=== PATIENT | male | born 1955 | race American Indian/Alaskan Native ===

== ENCOUNTER 2019-03-06 18:19 | Emergency (ER) | payer SELFPAY ==
--- NOTE | 2019-03-06 18:46 | Event Note ---
ED Screening Note Date of service: 03/06/18 Time: 18:42 ED Screening Note: Pt complains of BRB hemoptysis x this morning states cough since last night denies hx of cancer recently stopped smoking cigarettes hasn't been on his blood thinner since 12/2018 hx of [place]-denies CP or SOB or travel outside the country This initial assessment/diagnostic orders/clinical plan/treatment(s) is/are subject to change based on patients health status, clinical progression and re- assessment by fellow clinical providers in the ED. Further treatment and workup at subsequent clinical providers discretion. Patient/guardian urged not to elope from the ED as their condition may be serious if not clinically assessed and managed. Initial orders include:
[2019-03-06 19:26] LABS: INR 0.99 (0.87-1.13)
[2019-03-06 19:28] LABS: Basophils # (Auto) 0.1 K/mm3 (0.0-0.1); Basophils % (Auto) 1.3 % (0.0-1.8); Eosinophils # (Auto) 0.1 K/mm3 (0.0-0.4); Eosinophils % (Auto) 2.5 % (0.0-4.3); Hematocrit 39.4 % (35.5-45.6); Hemoglobin 12.8 gm/dl (11.8-15.2); Lymphocytes # (Auto) 2.3 K/mm3 (1.2-5.4); Lymphocytes % (Auto) 39.6 % (13.4-35.0); Mean Corpuscular HGB Conc 32 % (32-34); Mean Corpuscular Volume 83 fl (84-94); Monocytes # (Auto) 0.4 K/mm3 (0.0-0.8); Monocytes % (Auto) 6.7 % (0.0-7.3); Platelet Count 268 K/mm3 (140-440); Red Blood Count 4.76 M/mm3 (3.65-5.03); Red Cell Distribution Width 15.6 % (13.2-15.2)
[2019-03-06 19:31] LABS: BUN/Creatinine Ratio 11; Blood Urea Nitrogen 9 mg/dL (9-20); Hemolysis Index 17
[2019-03-06 19:45] LABS: Partial Thromboplastin Time 41.4 Sec. (24.2-36.6)
--- NOTE | 2019-03-06 20:02 | XRay Report ---
CHEST 2 VIEWS INDICATION / CLINICAL INFORMATION: hemoptysis. COMPARISON: None available. FINDINGS: SUPPORT DEVICES: None. HEART / MEDIASTINUM: There is prominence the cardiac silhouette LUNGS / PLEURA: There is an 8 mm oval density projecting over the right lower chest. This is seen onl y on the frontal view. .No pneumothorax. ADDITIONAL FINDINGS: No significant additional findings. IMPRESSION: 1. There is a small nodular density projecting over the right lower chest seen only on the frontal vi ew. This may represent a nipple shadow. Repeat frontal chest radiograph with nipple markers is recomm ended. Signer Name: Maximilian Scherer MD Signed: 03/06/2019 7:58 PM Workstation Name: [id number]
--- NOTE | 2019-03-06 21:53 | Emergency Department Report ---
ED General Adult HPI - General Chief complaint: Upper Respiratory Infection Stated complaint: VOMITING BLOOD Time Seen by Provider: 03/06/19 18:42 Source: patient Mode of arrival: Ambulatory Limitations: No Limitations - History of Present Illness Initial comments: Patient presents to the emergency department with a chief complaint of a cough that is productive of blood that started last night. Patient denies any chest pain or any recent travel or trauma. Patient has no other complaints -: Sudden Severity scale (0 -10): 0 Improves with: none Worsens with: none Associated Symptoms: denies other symptoms Treatments Prior to Arrival: none - Related Data Previous Rx's Medication Instructions Recorded Last Taken Type ALBUTEROL Inhaler (OR & NICU) 2 puff IH Q4HR PRN #1 inhalation 03/06/19 Unknown Rx [ProAir HFA Inhaler] predniSONE [Deltasone] 20 mg PO DAILY #15 tablet 03/06/19 Unknown Rx Allergies Allergy/AdvReac Type Severity Reaction Status Date / Time No Known Allergies Allergy Unverified 03/06/19 18:22 ED Review of Systems ROS: Stated complaint: VOMITING BLOOD Other details as noted in HPI Comment: All other systems reviewed and negative Constitutional: denies: chills, fever Eyes: denies: eye pain, eye discharge, vision change ENT: denies: ear pain, throat pain Respiratory: denies: cough, shortness of breath, wheezing Cardiovascular: denies: chest pain, palpitations Endocrine: no symptoms reported Gastrointestinal: denies: abdominal pain, nausea, diarrhea Genitourinary: denies: urgency, dysuria Musculoskeletal: denies: back pain, joint swelling, arthralgia Skin: denies: rash, lesions Neurological: denies: headache, weakness, paresthesias Psychiatric: denies: anxiety, depression Hematological/Lymphatic: denies: easy bleeding, easy bruising ED Past Medical Hx - Past Medical History Previous Medical History?: Yes Hx Hypertension: Yes Hx Heart Attack/AMI: Yes (stent) - Social History Smoking Status: Former Smoker Substance Use Type: None - Medications Home Medications: Home Medications Medication Instructions Recorded Confirmed Last Taken Type ALBUTEROL Inhaler (OR & NICU) 2 puff IH Q4HR PRN #1 inhalation 03/06/19 Unknown Rx [ProAir HFA Inhaler] predniSONE [Deltasone] 20 mg PO DAILY #15 tablet 03/06/19 Unknown Rx ED Physical Exam - General Limitations: No Limitations General appearance: alert, in no apparent distress - Head Head exam: Present: atraumatic, normocephalic - Eye Eye exam: Present: normal appearance, PERRL, EOMI - ENT ENT exam: Present: mucous membranes moist - Neck Neck exam: Present: normal inspection - Respiratory Respiratory exam: Present: normal lung sounds bilaterally. Absent: respiratory distress - Cardiovascular Cardiovascular Exam: Present: regular rate, normal rhythm. Absent: systolic murmur, diastolic murmur, rubs, gallop - GI/Abdominal GI/Abdominal exam: Present: soft, normal bowel sounds. Absent: distended, tenderness - Rectal Rectal exam: Present: deferred - Extremities Exam Extremities exam: Present: normal inspection - Back Exam Back exam: Present: normal inspection - Neurological Exam Neurological exam: Present: alert, oriented X3, CN II-XII intact. Absent: motor sensory deficit - Psychiatric Psychiatric exam: Present: normal affect, normal mood - Skin Skin exam: Present: warm, dry, intact, normal color. Absent: rash ED Course Vital Signs 03/06/19 03/06/19 18:24 20:11 Temperature 98.5 F 97.6 F Pulse Rate 85 81 Respiratory 16 20 Rate Blood Pressure 165/93 Blood Pressure 156/94 [Left] O2 Sat by Pulse 96 98 Oximetry ED Medical Decision Making - Lab Data Result diagrams: 03/06/19 18:57 03/06/19 18:57 Lab Results 03/06/19 03/06/19 03/06/19 Range/Units 18:57 18:57 18:57 WBC 5.9 (4.5-11.0) K/mm3 RBC 4.76 (3.65-5.03) M/mm3 Hgb 12.8 (11.8-15.2) gm/dl Hct 39.4 (35.5-45.6) % MCV 83 L (84-94) fl MCH 27 L (28-32) pg MCHC 32 (32-34) % RDW 15.6 H (13.2-15.2) % Plt Count 268 (140-440) K/mm3 Lymph % (Auto) 39.6 H (13.4-35.0) % [place] % (Auto) 6.7 (0.0-7.3) % Eos % (Auto) 2.5 (0.0-4.3) % Baso % (Auto) 1.3 (0.0-1.8) % Lymph # 2.3 (1.2-5.4) K/mm3 [place] # 0.4 (0.0-0.8) K/mm3 Eos # 0.1 (0.0-0.4) K/mm3 Baso # 0.1 (0.0-0.1) K/mm3 Seg Neutrophils % 49.9 (40.0-70.0) % Seg Neutrophils # 2.9 (1.8-7.7) K/mm3 PT 13.0 (12.2-14.9) Sec. INR 0.99 (0.87-1.13) APTT 41.4 H (24.2-36.6) Sec. Sodium 138 (137-145) mmol/L Potassium 3.9 (3.6-5.0) mmol/L Chloride 102.2 (98-107) mmol/L Carbon Dioxide 24 (22-30) mmol/L Anion Gap 16 mmol/L BUN 9 (9-20) mg/dL Creatinine 0.8 (0.8-1.5) mg/dL Estimated GFR > 60 ml/min BUN/Creatinine Ratio 11 % Glucose 127 H (75-100) mg/dL Calcium 9.0 (8.4-10.2) mg/dL - Radiology Data Radiology results: report reviewed - Medical Decision Making The chest was ordered because the patient had hemoptysis along with a questionable lesion on chest x-ray with a past social history of smoking Results discussed with patient Critical care attestation.: If time is entered above; I have spent that time in minutes in the direct care of this critically ill patient, excluding procedure time. ED Disposition Clinical Impression: Hemoptysis Disposition: DC-01 TO HOME OR SELFCARE Is pt being admited?: No Does the pt Need Aspirin: No Condition: Stable Instructions: Acute Hemoptysis (ED) Additional Instructions: return if worse Referrals: PRIMARY CARE, [Primary Care Provider] - 3-5 Days [facility] [Provider Group] - 3-5 Days [facility] [Provider Group] - 3-5 Days Time of Disposition: 23:20
--- NOTE | 2019-03-06 22:42 | Cat Scan Report ---
CT CHEST WITH CONTRAST INDICATION / CLINICAL INFORMATION: hemoptysis. TECHNIQUE: Axial CT images were obtained through the chest after 100 cc Omnipaque [address] scans at this location are performed using CT dose reduction for ALARA by means of automated exposure contr ol. COMPARISON: None available. FINDINGS: HEART: No significant abnormality. THORACIC AORTA: No significant abnormality. MEDIASTINUM and JESUS: No significant abnormality. LUNGS: No acute air space or interstitial disease. PLEURA: No significant pleural effusion. No pneumothorax. ADDITIONAL FINDINGS: Moderate degenerative changes left glenohumeral joint. UPPER ABDOMEN: No significant abnormality. SKELETAL SYSTEM: No significant abnormality. IMPRESSION: 1. No significant abnormality. Signer Name: Ron Morales MD Signed: 03/06/2019 10:38 PM Workstation Name: [id number]
[2019-03-07 00:10] VITALS: BP 155/98
== END 2019-03-06 23:35 | disposition home or self-care (01) ==
LOC: ED 18:19
DX: R04.2 Hemoptysis (principal); I10 Essential (primary) hypertension; I25.2 Old myocardial infarction; Z87.891 Personal history of nicotine dependence; Z79.899 Other long term (current) drug therapy
CPT/HCPCS: 36415; 71046; 71260; 80048; 85025; 85610; 85730; 99284; Q9967

== ENCOUNTER 2019-03-27 11:13 | Inpatient (IN) | payer SELFPAY ==
[2019-03-27] MEDS ORDERED: ASPIRIN 325 MG TAB PO ONE (11:33)
[2019-03-27 12:25] LABS: Basophils % (Auto) 0.9 % (0.0-1.8); Eosinophils # (Auto) 0.1 K/mm3 (0.0-0.4); Eosinophils % (Auto) 2.4 % (0.0-4.3); Hematocrit 43.8 % (35.5-45.6); Hemoglobin 14.3 gm/dl (11.8-15.2); Lymphocytes # (Auto) 2.1 K/mm3 (1.2-5.4); Lymphocytes % (Auto) 39.3 % (13.4-35.0); Mean Corpuscular HGB Conc 33 % (32-34); Mean Corpuscular Volume 81 fl (84-94); Monocytes # (Auto) 0.5 K/mm3 (0.0-0.8); Monocytes % (Auto) 9.1 % (0.0-7.3); Platelet Count 235 K/mm3 (140-440); Red Blood Count 5.38 M/mm3 (3.65-5.03); Red Cell Distribution Width 15.8 % (13.2-15.2)
--- NOTE | 2019-03-27 12:35 | XRay Report ---
CHEST 1 VIEW 03/27/2019 11:54 AM INDICATION / CLINICAL INFORMATION: Chest Pain. COMPARISON: 2 views of the chest from 03/06/2019. FINDINGS: SUPPORT DEVICES: None. HEART / MEDIASTINUM: Stable. LUNGS / PLEURA: No significant pulmonary or pleural abnormality. No pneumothorax. ADDITIONAL FINDINGS: No significant additional findings. IMPRESSION: 1. No acute abnormality of the chest. Signer Name: Delmer Novoa MD Signed: 03/27/2019 12:31 PM Workstation Name: [id number]
[2019-03-27 12:43] LABS: BUN/Creatinine Ratio 13; Blood Urea Nitrogen 12 mg/dL (9-20); Calcium 9.5 mg/dL (8.4-10.2); Hemolysis Index 15
--- NOTE | 2019-03-27 13:05 | Emergency Department Report ---
ED Chest Pain HPI - General Chief Complaint: Chest Pain Stated Complaint: CHEST PAIN Time Seen by Provider: 03/27/19 11:54 Source: patient Mode of arrival: Ambulatory Limitations: No Limitations - History of Present Illness Initial Comments: 63-year-old male with a past medical history of hypertension, CAD with stent, and medication noncompliance presents to Hospital stating that chest pain. Patient has some mild right-sided chest pain last night and try to go to sleep. This morning he had anterior and left-sided chest tightness that woke him up f rom sleep. Pain lasted about 5 minutes before resolving. No repeated pain episodes today. Denies nausea, vomiting, shortness of breath, diaphoresis, or pain radiation. Patient denies history of PE/DVT, calf tenderness, leg edema. Last travel was [place]. He was here end of February with diagnosis of bronchitis and was unable to fill the prescribed medicines at that time. He is noncompliant with all his medication including aspirin. As per patient's medication list he is suppose to take atrovastatin 40mg, aspirin 81 mg, amlodipine 10 mg, Folic acid 1 mg, vitamin B 1, multivitamin, and loratadine Severity scale (0 -10): 0 - Related Data Previous Rx's Medication Instructions Recorded Last Taken Type ALBUTEROL Inhaler (OR & NICU) 2 puff IH Q4HR PRN #1 inhalation 03/06/19 Unknown Rx [ProAir HFA Inhaler] predniSONE [Deltasone] 20 mg PO DAILY #15 tablet 03/06/19 Unknown Rx Allergies Allergy/AdvReac Type Severity Reaction Status Date / Time No Known Allergies Allergy Unverified 03/06/19 18:22 Heart Score - HEART Score History: Slightly suspicious EKG: Non-specific Age: 45-65 Risk factors: > 3 risk factors or hx of atherosclerotic disease Troponin: < normal limit HEART Score: 4 ED Review of Systems ROS: Stated complaint: CHEST PAIN Other details as noted in HPI Comment: All other systems reviewed and negative ED Past Medical Hx - Past Medical History Previous Medical History?: Yes Hx Hypertension: Yes Hx Heart Attack/AMI: Yes (stent) - Surgical History Past Surgical History?: Yes Additional Surgical History: Cardiac cath - Social History Smoking Status: Former Smoker Substance Use Type: None - Medications Home Medications: Home Medications Medication Instructions Recorded Confirmed Last Taken Type ALBUTEROL Inhaler (OR & NICU) 2 puff IH Q4HR PRN #1 inhalation 03/06/19 Unknown Rx [ProAir HFA Inhaler] predniSONE [Deltasone] 20 mg PO DAILY #15 tablet 03/06/19 Unknown Rx ED Physical Exam - General Limitations: No Limitations - Other Other exam information: General: No acute distress Head: Atraumatic Eyes: normal appearance ENT: Moist mucous membranes Neck: Normal appearance, no midline tenderness Chest: Clear to auscultation bilaterally, chest wall nontender CV: Regular rate and rhythm Abdomen: Soft, normal bowel sounds, nontender, nondistended, no rebound or g uarding Back: Normal inspection Extremity: Normal inspection infection, full range of motion, no calf tenderness or leg edema Neuro: Alert O x 3, no facial asymmetry, speech clear, no gross motor sensory deficit Psych: Appropriate behavior Skin: No rash ED Course Vital Signs 03/27/19 03/27/19 03/27/19 11:31 12:03 12:10 Temperature 98 F 98.1 F Pulse Rate 99 H 94 H Respiratory 18 16 16 Rate Blood Pressure 133/83 Blood Pressure 131/87 [Right] O2 Sat by Pulse 96 99 98 Oximetry CHACE score - Chace Score Age > 65: (0) No Aspirin use within the Past 7 Days: (0) No 3 or more CAD Risk Factors: (1) Yes 2 or more Angina events in past 24 hrs: (0) No Known CAD with more than 50% Stenosis: (0) No ST Deviation Greater than 0.5mm: (0) No ED Medical Decision Making - Lab Data Result diagrams: 03/27/19 12:20 03/27/19 12:20 Lab Results 03/27/19 03/27/19 Range/Units 12:20 12:20 WBC 5.4 (4.5-11.0) K/mm3 RBC 5.38 H (3.65-5.03) M/mm3 Hgb 14.3 (11.8-15.2) gm/dl Hct 43.8 (35.5-45.6) % MCV 81 L (84-94) fl MCH 27 L (28-32) pg MCHC 33 (32-34) % RDW 15.8 H (13.2-15.2) % Plt Count 235 (140-440) K/mm3 Lymph % (Auto) 39.3 H (13.4-35.0) % [place] % (Auto) 9.1 H (0.0-7.3) % Eos % (Auto) 2.4 (0.0-4.3) % Baso % (Auto) 0.9 (0.0-1.8) % Lymph # 2.1 (1.2-5.4) K/mm3 [place] # 0.5 (0.0-0.8) K/mm3 Eos # 0.1 (0.0-0.4) K/mm3 Baso # 0.0 (0.0-0.1) K/mm3 Seg Neutrophils % 48.3 (40.0-70.0) % Seg Neutrophils # 2.6 (1.8-7.7) K/mm3 Sodium 138 (137-145) mmol/L Potassium 4.1 (3.6-5.0) mmol/L Chloride 99.4 (98-107) mmol/L Carbon Dioxide 25 (22-30) mmol/L Anion Gap 18 mmol/L BUN 12 (9-20) mg/dL Creatinine 0.9 (0.8-1.5) mg/dL Estimated GFR > 60 ml/min BUN/Creatinine Ratio 13 % Glucose 112 H (75-100) mg/dL Calcium 9.5 (8.4-10.2) mg/dL Troponin T < 0.010 (0.00-0.029) ng/mL - EKG Data -: EKG Interpreted by Sd EKG shows normal: sinus rhythm, ST-T waves (no stemi) Rate: tachycardia (100) - EKG Data When compared to previous EKG there are: previous EKG unavailable - Radiology Data Radiology results: report reviewed CHEST 1 VIEW 03/27/2019 11:54 AM INDICATION / CLINICAL INFORMATION: Chest Pain. COMPARISON: 2 views of the chest from 03/06/2019. FINDINGS: SUPPORT DEVICES: None. HEART / MEDIASTINUM: Stable. LUNGS / PLEURA: No significant pulmonary or pleural abnormality. No pneumothorax. ADDITIONAL FINDINGS: No significant additional findings. IMPRESSION: 1. No acute abnormality of the chest. - Differential Diagnosis mi, unstable angina, Atypical chest pain, PE, GERD, muscle spasm Critical Care Time: No Critical care attestation.: If time is entered above; I have spent that time in minutes in the direct care of this critically ill patient, excluding procedure time. ED Disposition Clinical Impression: Chest pain, Hx of heart artery stent, Noncompliance with medication regimen Disposition: DC-09 OP ADMIT IP TO THIS HOSP Is pt being admited?: Yes Does the pt Need Aspirin: Yes Condition: Stable Time of Disposition: 13:04 (DR brooks/hosp)
--- NOTE | 2019-03-27 13:44 | History and Physical Report ---
History of Present Illness Date of examination: 03/27/19 Date of admission: 03/27/19 13:05 Chief complaint: chest pain History of present illness: 63-year-old male with a past medical history of hypertension, CAD with stent, and medication noncompliance presents to Hospital with c/o chest pain. Pain describe as anterior and left-sided chest tightness that woke him up from sleep. Pain lasted about 5 minutes before resolving. Denies nausea, vomiting, shortness of breath, diaphoresis, or pain radiation. Patient denies history of PE/DVT, calf tenderness, leg edema. Last travel was [place]. He was here end of February with diagnosis of bronchitis and was unable to fill the prescribed medicines at that time. He is noncompliant with all his medication including aspirin. He is not taking any medications since this year October. In the ER his CE were normal, CXR showed no infiltrates. He is being admitted for further Mx. Past medical history: Past Medical History: CAD, hypertension Past Surgical History: PTCA Family history: Hypertension Social history: smoking (former), alcohol abuse (former) Review of System: Constitutional: no fever, no chills, no weight loss Ears, eyes, nose, mouth and throat: no nasal congestion, no nasal discharge, no sinus pressure, no vision change, no red eye. Neck: No neck pain or rigidity. Cardiovascular: + chest pain, no orthopnea, no palpitations, no leg swelling Respiratory: No shortness of breath, no cough, no congestion, no wheezing Gastrointestinal: no abdominal pain, no nausea, no vomiting Genitourinary : no dysuria, no hematuria Musculoskeletal: no joint swelling or muscle ache Integumentary: no rash, no pruritis Neurological: no parathesias, no numbness, no tingling Endocrine: no cold or heat intolerance, no polyuria or polydipsia Hematologic/Lymphatic: no easy bruising, no easy bleeding, no gland swelling Allergic/Immunologic: no urticaria, no angioedema. Medications and Allergies Allergies Allergy/AdvReac Type Severity Reaction Status Date / Time No Known Allergies Allergy Unverified 03/06/19 18:22 Home Medications Medication Instructions Recorded Confirmed Last Taken Type ALBUTEROL Inhaler (OR & NICU) 2 puff IH Q4HR PRN #1 inhalation 03/06/19 03/28/19 Unknown Rx [ProAir HFA Inhaler] predniSONE [Deltasone] 20 mg PO DAILY #15 tablet 03/06/19 03/28/19 Unknown Rx Exam - Physical Exam Narrative exam: GENERAL: well-developed and well-nourished male lying on bed appeared to be in no discomfort. HEENT: Normocephalic. Atraumatic. No conjunctival congestion or icterus. Patient has moist mucous membranes. NECK: Supple. Trachea midline. CHEST/LUNGS: Clear to auscultated bilaterally, breathing nonlabored. No wheezes crackles or rhonchi. HEART/CARDIOVASCULAR: Regular in rate and rhythm. S1 and S2 positive. ABDOMEN: Abdomen is soft, nontender. Patient has normal bowel sounds. SKIN: There is no rash. Warm and dry. NEURO: No focal motor deficit. Follows command. MUSCULOSKELETAL: No joint effusion or tenderness. EXTRIMITY: No edema, no cyanosis or clubbing. PSYCH: Cooperative. - Constitutional Vitals: Temp Pulse Resp BP Pulse Ox 98.1 F 94 H 16 131/87 98 03/27/19 12:10 03/27/19 12:10 03/27/19 12:10 03/27/19 12:10 03/27/19 12:10 Results - Labs CBC & Chem 7: 03/27/19 15:02 03/27/19 15:02 Labs: Abnormal lab results 03/27/19 03/27/19 Range/Units 12:20 12:20 RBC 5.38 H (3.65-5.03) M/mm3 MCV 81 L (84-94) fl MCH 27 L (28-32) pg RDW 15.8 H (13.2-15.2) % Lymph % (Auto) 39.3 H (13.4-35.0) % [place] % (Auto) 9.1 H (0.0-7.3) % Glucose 112 H (75-100) mg/dL Assessment and Plan Chest pain hypertension, CAD with stent, Medication noncompliance - - will admit to telemetry bed - monitor with serial CE and EKG - will place on Aspirin, statin - as needed SL NTG and iv morphin for pain - Monitor BP, add betablocker and ACEI if BP tolerates - Cardiology consult, order 2D echo and stress test in the am - cardiac diet now, NPO after midnight - provide DVT Px with lovenox Radiological data: Chest x-ray: 1. No acute abnormality of the chest.
[2019-03-27] MEDS ORDERED: NITROGLYCERIN 0.4 MG TAB SUBL SL PRN (13:45)
[2019-03-27] MEDS ORDERED: MORPHINE 2 MG/1 ML INJ IV PRN (13:45)
--- NOTE | 2019-03-27 14:43 | Consultation ---
History of Present Illness Consult date: 03/27/19 Requesting physician: GARFIELD VITALE Consult reason: chest pain History of present illness: The pt is a 63YO male with a past medical history of CAD s/p AMI and PCI in [place] in 2011, HTN, prior ETOH abuse s/p rehabilitation. He is previously unknown to our practice. He presented with c/o chest pain. He was sleeping last night when he was awoken by sharp right-sided chest pain. The pain lasted for several minutes and then resolved. He went back to sleep and was awoken again this morning by sharp left-sided chest pain. He decided to seek medical attention at that time. He denies any associated SOB, palpitations, n/v, diaphoresis, dizziness or syncope. His chest pain is currently resolved. He has not been alysia ing any prescription medications. He takes baby ASA intermittently. He was here end of February with diagnosis of bronchitis and was unable to fill the prescribed medicines at that time. Past History Past Medical History: CAD, hypertension Past Surgical History: PTCA Social history: smoking (former), alcohol abuse (former) Medications and Allergies Allergies Allergy/AdvReac Type Severity Reaction Status Date / Time No Known Allergies Allergy Unverified 03/06/19 18:22 Home Medications Medication Instructions Recorded Confirmed Last Taken Type ALBUTEROL Inhaler (OR & NICU) 2 puff IH Q4HR PRN #1 inhalation 03/06/19 Unknown Rx [ProAir HFA Inhaler] predniSONE [Deltasone] 20 mg PO DAILY #15 tablet 03/06/19 Unknown Rx Active Meds: Active Medications Aspirin (Ecotrin) 325 mg PO QDAY SABINO Atorvastatin Calcium (Lipitor) 40 mg PO QHS [facility] Metoprolol Tartrate (Metoprolol) 25 mg PO BID [facility] Morphine Sulfate (Morphine) 2 mg IV Q5MIN PRN PRN Reason: Chest Pain unrelieved by NTG Nitroglycerin (Nitrostat) 0.4 mg SL Q5M PRN PRN Reason: Chest Pain Sodium Chloride (Sodium Chloride Flush Syringe 10 Ml) 10 ml IV PRN PRN PRN Reason: LINE FLUSH Review of Systems Constitutional: no weight loss, no weight gain, no fever, no chills, no sweats Ears, nose, mouth and throat: no ear pain, no nose pain, no sinus pressure, no sinus pain Cardiovascular: chest pain, no orthopnea, no palpitations, no rapid/irregular heart beat, no edema, no syncope, no lightheadedness, no shortness of breath, no dyspnea on exertion, no leg edema Respiratory: no cough, no shortness of breath, no dyspnea on exertion, no congestion, no wheezing, no pain on inspiration Gastrointestinal: no abdominal pain, no nausea, no vomiting, no diarrhea, no constipation, no change in bowel habits Genitourinary Male: no dysuria, no hematuria, no flank pain, no discharge, no urinary frequency, no urinary hesitancy Musculoskeletal: no neck stiffness, no neck pain, no shooting arm pain, no arm numbness/tingling, no low back pain, no shooting leg pain Integumentary: no rash, no pruritis, no redness, no sores, no wounds Neurological: no head injury, no paralysis, no weakness, no parathesias, no numbness, no tingling, no seizures, no syncope Psychiatric: no anxiety Endocrine: no cold intolerance, no heat intolerance Hematologic/Lymphatic: no easy bruising, no easy bleeding Allergic/Immunologic: no urticaria, no wheezing Physical Examination Vital Signs Temp Pulse Resp BP Pulse Ox 98 F 99 H 18 133/83 96 03/27/19 11:31 03/27/19 11:31 03/27/19 11:31 03/27/19 11:31 03/27/19 11:31 General appearance: no acute distress HEENT: Positive: PERRL, Normocephaly, Mucus Membranes Moist Neck: Positive: neck supple, trachea midline Cardiac: Positive: Reg Rate and Rhythm, S1/S2 Lungs: Positive: clear to auscultation Neuro: Positive: Grossly Intact Abdomen: Negative: Tender Skin: Negative: Rash Musculoskeletal: No Pain Extremities: Absent: edema Results 03/27/19 15:02 03/27/19 15:02 CBC 03/27/19 Range/Units 12:20 WBC 5.4 (4.5-11.0) K/mm3 RBC 5.38 H (3.65-5.03) M/mm3 Hgb 14.3 (11.8-15.2) gm/dl Hct 43.8 (35.5-45.6) % Plt Count 235 (140-440) K/mm3 Lymph # 2.1 (1.2-5.4) K/mm3 [place] # 0.5 (0.0-0.8) K/mm3 Eos # 0.1 (0.0-0.4) K/mm3 Baso # 0.0 (0.0-0.1) K/mm3 Comprehensive Metabolic Panel 03/27/19 Range/Units 12:20 Sodium 138 (137-145) mmol/L Potassium 4.1 (3.6-5.0) mmol/L Chloride 99.4 (98-107) mmol/L Carbon Dioxide 25 (22-30) mmol/L BUN 12 (9-20) mg/dL Creatinine 0.9 (0.8-1.5) mg/dL Glucose 112 H (75-100) mg/dL Calcium 9.5 (8.4-10.2) mg/dL - Imaging and Cardiology Echo: pending EKG: report reviewed, image reviewed EKG interpretations - Telemetry EKG Rhythm: Sinus Rhythm - EKG Sinus rhythms and dysrhythmias: sinus rhythm Assessment and Plan Chest pain currently resolved. Shaheen negative for AMI x 1. ECG with NAF. Add oral nitrates. Cont ASA, lipitor, lopressor. Obtain echo. Plan for lexiscan MPI stress test in AM. NPO after MN. The patient has been seen in conjunction with Dr. Cantrell who agrees with the assessment and plan of care. - Patient Problems (1) Chest pain Current Visit: Yes Status: Acute (2) CAD (coronary artery disease) Current Visit: Yes Status: Chronic (3) Stented coronary artery Current Visit: Yes Status: Chronic (4) HTN (hypertension) Current Visit: Yes Status: Chronic (5) History of ETOH abuse Current Visit: Yes Status: Chronic (6) Noncompliance with medication regimen Current Visit: Yes Status: Chronic
[2019-03-27] MEDS ORDERED: METOPROLOL TARTRATE 50 MG TAB ONE (15:04)
[2019-03-27] MEDS: METOPROLOL TARTRATE 25 MG TAB PO SCH ×2 (15:11→22:59)
[2019-03-27] MEDS ORDERED: METOPROLOL TARTRATE 25 MG TAB ONE (15:11)
[2019-03-27 15:42] LABS: Basophils % (Auto) 0.9 % (0.0-1.8); Eosinophils # (Auto) 0.1 K/mm3 (0.0-0.4); Eosinophils % (Auto) 2.1 % (0.0-4.3); Hemoglobin 13.1 gm/dl (11.8-15.2); Lymphocytes # (Auto) 2.3 K/mm3 (1.2-5.4); Mean Corpuscular HGB Conc 33 % (32-34); Mean Corpuscular Volume 82 fl (84-94); Monocytes # (Auto) 0.5 K/mm3 (0.0-0.8); Monocytes % (Auto) 8.4 % (0.0-7.3); Platelet Count 212 K/mm3 (140-440); Red Blood Count 4.88 M/mm3 (3.65-5.03); Red Cell Distribution Width 15.8 % (13.2-15.2)
[2019-03-27 15:45] LABS: BUN/Creatinine Ratio 14; Blood Urea Nitrogen 13 mg/dL (9-20); Calcium 9.4 mg/dL (8.4-10.2); Hemolysis Index 11; LDL Cholesterol,Direct TNR mg/dL (50-130)
[2019-03-27 16:15] LABS: Chol/HDL Ratio 5.64 %; HDL Cholesterol 28 mg/dL (40-59)
[2019-03-27] MEDS ORDERED: ACETAMINOPHEN 325 MG TAB PO PRN (16:35)
[2019-03-27] MEDS: ENOXAPARIN 40 MG/0.4 ML INJ SUB-Q SCH (22:59)
[2019-03-27] MEDS: FAMOTIDINE 10 MG TAB PO SCH (22:59)
[2019-03-27] MEDS: DOCUSATE SODIUM 100 MG CAP PO SCH (23:00)
[2019-03-28] MEDS ORDERED: REGADENOSON 0.4 MG/5 ML INJ IV ONE (07:24)
--- NOTE | 2019-03-28 09:58 | Treadmill Report ---
LEXISCAN STRESS TEST REPORT REASON FOR STUDY: Chest pain. STRESS TEST PROTOCOL: The patient received 0.4 mg of Lexiscan intravenously over 10 seconds. Tc-99m Tetrofosmin was subsequently injected. Baseline ECG, normal sinus rhythm. Nonspecific T-wave abnormalities. Lexiscan ECG, no ischemic changes. No chest pain. No arrhythmias. IMPRESSION: Electrocardiographically negative stress test. Nuclear imaging report to follow. [facility]# [id number] AGO/NTS
--- NOTE | 2019-03-28 10:54 | Progress Note ---
Assessment and Plan Chest pain currently resolved. AMI r/o. Await echo. Proceed with lexiscan MPI stress test. Await findings. The patient has been seen in conjunction with Dr. Cantrell who agrees with the assessment and plan of care. - Patient Problems (1) Chest pain Current Visit: Yes Status: Resolved (2) CAD (coronary artery disease) Current Visit: Yes Status: Chronic (3) Stented coronary artery Current Visit: Yes Status: Chronic (4) HTN (hypertension) Current Visit: Yes Status: Chronic (5) History of ETOH abuse Current Visit: Yes Status: Chronic (6) Noncompliance with medication regimen Current Visit: Yes Status: Chronic Subjective Date of service: 03/28/19 Principal diagnosis: cp Interval history: pt resting comfortably in bed, no current complaints, no chest pain overnight. for stress test today. in SR on tele. Objective Last Vital Signs Temp 98.3 F 03/28/19 07:53 Pulse 72 03/28/19 04:21 Resp 18 03/28/19 07:53 BP 132/84 03/28/19 09:36 Pulse Ox 94 03/28/19 03:45 - Physical Examination General: No Apparent Distress HEENT: Positive: PERRL, Normocephaly, Mucus Membranes Moist Neck: Positive: neck supple, trachea midline Cardiac: Positive: Reg Rate and Rhythm, S1/S2 Lungs: Positive: Decreased Breath Sounds Neuro: Positive: Grossly Intact Abdomen: Negative: Tender Skin: Negative: Rash Musculoskeletal: No Pain Extremities: Absent: edema - Labs and Meds Lipids 03/27/19 Range/Units 15:02 Triglycerides 415 H (2-149) mg/dL Cholesterol 158 (50-199) mg/dL HDL Cholesterol 28 L (40-59) mg/dL Cholesterol/HDL Ratio 5.64 % CBC 03/27/19 03/27/19 Range/Units 12:20 15:02 WBC 5.4 5.4 (4.5-11.0) K/mm3 RBC 5.38 H 4.88 (3.65-5.03) M/mm3 Hgb 14.3 13.1 (11.8-15.2) gm/dl Hct 43.8 40.0 (35.5-45.6) % Plt Count 235 212 (140-440) K/mm3 Lymph # 2.1 2.3 (1.2-5.4) K/mm3 Iron # 0.5 0.5 (0.0-0.8) K/mm3 Eos # 0.1 0.1 (0.0-0.4) K/mm3 Baso # 0.0 0.0 (0.0-0.1) K/mm3 Comprehensive Metabolic Panel 03/27/19 03/27/19 Range/Units 12:20 15:02 Sodium 138 142 (137-145) mmol/L Potassium 4.1 4.1 (3.6-5.0) mmol/L Chloride 99.4 101.9 (98-107) mmol/L Carbon Dioxide 25 23 (22-30) mmol/L BUN 12 13 (9-20) mg/dL Creatinine 0.9 0.9 (0.8-1.5) mg/dL Glucose 112 H 113 H (75-100) mg/dL Calcium 9.5 9.4 (8.4-10.2) mg/dL - Imaging and Cardiology EKG: report reviewed, image reviewed Echo: pending - EKG Sinus rhythms and dysrhythmias: sinus rhythm
[2019-03-28] MEDS: ASPIRIN EC 325 MG TAB PO SCH (11:17)
[2019-03-28] MEDS: DOCUSATE SODIUM 100 MG CAP PO SCH ×2 (11:17→21:27)
[2019-03-28] MEDS: METOPROLOL TARTRATE 25 MG TAB PO SCH ×2 (11:17→21:31)
[2019-03-28] MEDS: FAMOTIDINE 10 MG TAB PO SCH ×2 (11:18→21:27)
--- NOTE | 2019-03-28 12:11 | Event Note ---
Date: 03/28/19 S/p lexiscan MPI stress test this AM which showed fixed defects, EF 20%. Echo reviewed - EF 30%. Pt denies any prior history of HF or CMP. Coronary angiography is recommended for definitive diagnosis. Indications, potential risks and benefits of LHC reviewed with pt and he is agreeable to proceed with LHC in AM. NPO after MN. Nina LAFLEUR NP / DR. CARDOZA
[2019-03-28] MEDS ORDERED: SODIUM CHLORIDE 0.9% 500 ML 500 ML IV SCH (13:00)
--- NOTE | 2019-03-28 13:45 | Progress Note ---
Assessment and Plan Assessment and plan: Chest pain Abnormal stress test hypertension, CAD with stent, Medication noncompliance - Admitted to telemetry bed -Bed rest - monitor with serial CE and EKG - On Aspirin, statin - as needed SL NTG and iv morphin for pain - Monitor BP, add betablocker and ACEI if BP tolerates - Cardiology consulted, following -Stress test abnormal. For LHC in am - cardiac diet now, NPO after midnight - provide DVT Px with lovenox History Interval history: Chest pain Hospitalist Physical - Physical exam Narrative exam: Gen: Not in acute distress, sitting up in chair, HEENT: Normocephalic, atraumatic Neck: supple, no JVD Heart: S1 and S2 reg, no murmurs, rubs or gallop Lungs: Clear to auscultation bilaterally, Abd: soft, non tender, non distended, normal BS, Ext: No edema, no clubbing, no cyanosis Neuro: Awake, alert, oriented X 3, no focal neurological signs - Constitutional Vitals: Temp Pulse Resp BP Pulse Ox 98.3 F 79 18 144/85 94 03/28/19 07:53 03/28/19 11:17 03/28/19 07:53 03/28/19 11:17 03/28/19 03:45 General appearance: Present: no acute distress Results - Labs CBC & Chem 7: 03/27/19 15:02 03/27/19 15:02 Labs: Laboratory Last Values WBC 5.4 K/mm3 (4.5-11.0) 03/27/19 15:02 RBC 4.88 M/mm3 (3.65-5.03) 03/27/19 15:02 Hgb 13.1 gm/dl (11.8-15.2) 03/27/19 15:02 Hct 40.0 % (35.5-45.6) 03/27/19 15:02 MCV 82 fl (84-94) L 03/27/19 15:02 MCH 27 pg (28-32) L 03/27/19 15:02 MCHC 33 % (32-34) 03/27/19 15:02 RDW 15.8 % (13.2-15.2) H 03/27/19 15:02 Plt Count 212 K/mm3 (140-440) 03/27/19 15:02 Lymph % (Auto) 43.0 % (13.4-35.0) H 03/27/19 15:02 [place] % (Auto) 8.4 % (0.0-7.3) H 03/27/19 15:02 Eos % (Auto) 2.1 % (0.0-4.3) 03/27/19 15:02 Baso % (Auto) 0.9 % (0.0-1.8) 03/27/19 15:02 Lymph # 2.3 K/mm3 (1.2-5.4) 03/27/19 15:02 [place] # 0.5 K/mm3 (0.0-0.8) 03/27/19 15:02 Eos # 0.1 K/mm3 (0.0-0.4) 03/27/19 15:02 Baso # 0.0 K/mm3 (0.0-0.1) 03/27/19 15:02 Seg Neutrophils % 45.6 % (40.0-70.0) 03/27/19 15:02 Seg Neutrophils # 2.5 K/mm3 (1.8-7.7) 03/27/19 15:02 Sodium 142 mmol/L (137-145) 03/27/19 15:02 Potassium 4.1 mmol/L (3.6-5.0) 03/27/19 15:02 Chloride 101.9 mmol/L (98-107) 03/27/19 15:02 Carbon Dioxide 23 mmol/L (22-30) 03/27/19 15:02 Anion Gap 21 mmol/L 03/27/19 15:02 BUN 13 mg/dL (9-20) 03/27/19 15:02 Creatinine 0.9 mg/dL (0.8-1.5) 03/27/19 15:02 Estimated GFR > 60 ml/min 03/27/19 15:02 BUN/Creatinine Ratio 14 % 03/27/19 15:02 Glucose 113 mg/dL (75-100) H 03/27/19 15:02 Hemoglobin A1c 6.2 % (4-6) H 03/27/19 15:02 Calcium 9.4 mg/dL (8.4-10.2) 03/27/19 15:02 Troponin T < 0.010 ng/mL (0.00-0.029) 03/28/19 11:53 Triglycerides 415 mg/dL (2-149) H 03/27/19 15:02 Cholesterol 158 mg/dL (50-199) 03/27/19 15:02 LDL Cholesterol Direct TNR 03/27/19 15:02 HDL Cholesterol 28 mg/dL (40-59) L 03/27/19 15:02 Cholesterol/HDL Ratio 5.64 % 03/27/19 15:02 Active Medications - Current Medications Current Medications: Generic Name Dose Route Start Last Admin Trade Name Freq PRN Reason Stop Dose Admin Acetaminophen 650 mg 03/27/19 16:35 Tylenol PO Q4H PRN Pain MILD(1-3)/Fever >100.5/NG Aspirin 325 mg 03/28/19 10:00 03/28/19 11:17 Ecotrin PO 325 mg QDAY SABINO Administration Atorvastatin Calcium 40 mg 03/27/19 22:00 03/27/19 22:59 Lipitor PO 40 mg QHS SABINO Administration Docusate Sodium 100 mg 03/27/19 22:00 03/28/19 11:17 Colace PO 100 mg BID SABINO Administration Enoxaparin Sodium 40 mg 03/27/19 22:00 03/27/19 22:59 Enoxaparin SUB-Q 40 mg QDAY@2200 SABINO Administration Famotidine 10 mg 03/27/19 22:00 03/28/19 11:18 Pepcid PO 10 mg BID SABINO Administration Sodium Chloride 500 mls @ 50 mls/hr 03/28/19 13:00 Nacl 0.9% 500 Ml IV 03/28/19 22:59 DIRECT SABINO Isosorbide Mononitrate 30 mg 03/28/19 10:00 03/28/19 11:16 Imdur PO 30 mg QDAY SABINO Administration Labetalol HCl 10 mg 03/27/19 16:35 Labetalol IV Q4H PRN HTN SYS>180 Lisinopril 5 mg 03/29/19 10:00 Zestril PO QDAY [facility] Metoprolol Tartrate 25 mg 03/27/19 14:00 03/28/19 11:17 Metoprolol PO 25 mg BID SABINO Administration Morphine Sulfate 2 mg 03/27/19 13:45 Morphine IV Q5MIN PRN Chest Pain unrelieved by NTG Nitroglycerin 0.4 mg 03/27/19 13:45 Nitrostat SL Q5M PRN Chest Pain Oxycodone/Acetaminophen 1 tab 03/27/19 16:35 Percocet 5/325 PO Q6H PRN Pain, Moderate (4-6) Sodium Chloride 10 ml 03/27/19 13:45 Sodium Chloride Flush Syringe 10 Ml IV PRN PRN LINE FLUSH
--- NOTE | 2019-03-28 18:08 | Treadmill Report ---
THALLIUM REPORT REASON FOR STUDY: Chest pain. IMAGING PROTOCOL: The patient received 10 mCi of technetium Tetrofosmin for rest imaging, and 28 mCi of technetium Tetrofosmin for stress imaging. Imaging for all procedures, etc., etc. IMAGING PROTOCOL: The patient received 4 mCi of Thallium 201 for rest imaging and 26 mCi of technetium-99 Tetrofosmin for stress imaging. Imaging for all procedures was completed 30-90 minutes following the initial injection of Technetium 99m Tetrofosmin. SPECT imaging in the 180 degree arc was performed in the right anterior oblique projection. Computerized reconstruction of the images was performed for analysis. NUCLEAR IMAGING RESULTS: Normal left ventricular cavity size with no change from stress or rest. Distribution of radionuclide within the left ventricle revealed a large area of photo-induction involving the inferior and inferoapical region. The degree of photo-induction is moderate. Rest imaging does not show any significant improvement in this defect. In addition, there is a small area of photo-induction involving the inferolateral wall. The degree of photo-induction is moderate. Rest imaging does not show any significant improvement in this defect. Gated SPECT imaging revealed severe global left ventricular hypokinesis. The calculated left ventricular ejection fraction is 20%. IMPRESSION: Large fixed inferior and inferoapical defect. Small fixed inferolateral defect. Severe global left ventricular hypokinesis. EF 20%. These findings suggest prior infarction in the right coronary artery territory. There is also suggestion of a small area of prior infarction in the left circumflex coronary artery territory. In addition, a cardiomyopathic process may be present in this patient. There is no evidence of significant stress-induced ischemia. JOB# [id number] [employer] [facility]/NTS
[2019-03-28] MEDS: oxyCODONE /ACETAMINOPHEN 5-325MG TAB PO PRN (21:28)
[2019-03-28] MEDS: ENOXAPARIN 40 MG/0.4 ML INJ SUB-Q SCH (21:28)
[2019-03-29 06:28] LABS: Hematocrit 38.5 % (35.5-45.6); Hemoglobin 12.7 gm/dl (11.8-15.2); Mean Corpuscular HGB Conc 33 % (32-34); Mean Corpuscular Volume 81 fl (84-94); Platelet Count 205 K/mm3 (140-440); Red Blood Count 4.73 M/mm3 (3.65-5.03); Red Cell Distribution Width 15.3 % (13.2-15.2)
[2019-03-29 06:40] LABS: INR 0.89 (0.87-1.13)
[2019-03-29 06:47] LABS: BUN/Creatinine Ratio 14; Blood Urea Nitrogen 11 mg/dL (9-20); Calcium 8.4 mg/dL (8.4-10.2); Hemolysis Index 1
[2019-03-29 07:18] LABS: Total Cells Counted 100
[2019-03-29 07:19] LABS: Macrocytosis Few; Platelet Estimate Consistent w Auto
[2019-03-29] MEDS ORDERED: SODIUM CHLORIDE 0.9% 500 ML 500 ML ONE (07:55)
[2019-03-29] MEDS: ASPIRIN EC 325 MG TAB PO SCH ×2 (08:03→09:48)
[2019-03-29] MEDS ORDERED: ASPIRIN EC 325 MG TAB PO ONE (08:05)
[2019-03-29] MEDS ORDERED: HEPARIN/NS 5000 UNIT/500ML 1,000 ML IR ONE (08:13)
[2019-03-29] MEDS ORDERED: MIDAZOLAM 2 MG/2 ML INJ ONE (08:13)
[2019-03-29] MEDS ORDERED: NITROGLYCERIN SYRINGE 3 ML ONE (08:14)
[2019-03-29] MEDS ORDERED: fentaNYL 100 MCG/2 ML INJ ONE (08:14)
[2019-03-29] MEDS: LIDOCAINE (2%) 20 MG/1 ML VIAL 20 ML MDV INFILTRATI ONE ×2 (08:55→08:56)
[2019-03-29] MEDS: VERAPAMIL 5 MG/2 ML INJ ONE ×2 (08:55→08:57)
[2019-03-29] MEDS: HEPARIN 10,000 UNITS/10 ML VIAL ONE ×2 (08:56→08:57)
[2019-03-29] MEDS: FAMOTIDINE 10 MG TAB PO SCH ×2 (09:48→22:16)
[2019-03-29] MEDS: METOPROLOL TARTRATE 25 MG TAB PO SCH ×2 (09:48→22:16)
[2019-03-29] MEDS: DOCUSATE SODIUM 100 MG CAP PO SCH ×2 (09:50→22:16)
[2019-03-29] MEDS ORDERED: LISINOPRIL 5 MG TAB PO SCH (10:00)
--- NOTE | 2019-03-29 11:02 | Discharge Summary ---
Providers - Providers Date of Admission: 03/29/19 08:36 Date of discharge: 03/29/19 Attending physician: GARFIELD VITALE 03/27/19 Consult to Cardiac Rehabilitation [CONS] Routine Reason For Exam: Phase I 03/27/19 13:45 Consult to Cardiology [CONS] Routine Consulting Provider: FERN KIMBALL Reason For Exam: chest pain 03/29/19 08:58 Consult to Dietitian/Nutrition [CONS] Routine Physician Instructions: cardiac diet Reason For Exam: Reason for Consult: Diet education 03/29/19 09:09 Consult to Cardiac Rehabilitation [CONS] Routine Reason For Exam: Cardiac Rehab Evaluation Primary care physician: FRUIT GROWER Hospitalization Condition: Stable Pertinent studies: CXR Stress test Cardiac cath Hospital course: The pt is a 63YO male with a past medical history of CAD s/p AMI and PCI in [place] in 2011, HTN, prior ETOH abuse s/p rehabilitation presented to ER with c/o chest pain. He was Admitted to telemetry bed, monitored with serial CE and EKG, Placed On Aspirin, statin as needed SL NTG and iv morphin for pain. Cardiology consulted, Stress test was abnormal. S/p LHC this AM which showed nonobstructive CAD, EF ~30-35%. cardiology recommended to Cont present cardiac management, including ASA 81, statin, Imdur, lopressor, lisinopril. Patient was then discharged home today following completion of post-cath order set. Recommend pt follow up with Dr. Cantrell within 1-2 weeks ([phone]). Discharge diagnosis: Chest pain possible due to CAD - medical Mx per cardiology Systolic CHFrEF 30-35%, new diagnosis, compensated Abnormal stress test s/p cardiac cath hypertension, stable CAD with stent, cont asp and statin Medication noncompliance Disposition: - TO HOME OR SELFCARE Time spent for discharge: 34 minutes Core Measure Documentation - Palliative Care Palliative Care/ Comfort Measures: Not Applicable - Core Measures Any of the following diagnoses?: none Exam - Physical Exam Narrative exam: GENERAL: well-developed and well-nourished male lying on bed appeared to be in no discomfort. HEENT: Normocephalic. Atraumatic. No conjunctival congestion or icterus. Patient has moist mucous membranes. NECK: Supple. Trachea midline. CHEST/LUNGS: Clear to auscultated bilaterally, breathing nonlabored. No wheezes crackles or rhonchi. HEART/CARDIOVASCULAR: Regular in rate and rhythm. S1 and S2 positive. ABDOMEN: Abdomen is soft, nontender. Patient has normal bowel sounds. SKIN: There is no rash. Warm and dry. NEURO: No focal motor deficit. Follows command. MUSCULOSKELETAL: No joint effusion or tenderness. EXTRIMITY: No edema, no cyanosis or clubbing. PSYCH: Cooperative. - Constitutional Vitals: Temp Pulse Resp BP Pulse Ox 98.0 F 78 20 138/89 95 03/29/19 04:23 03/29/19 09:49 03/29/19 04:23 03/29/19 09:49 03/29/19 04:23 Plan Activity: advance as tolerated Weight Bearing Status: Weight Bear as Tolerated Diet: low fat, low salt Follow up with: PRIMARY CARE, [Primary Care Provider] - 7 Days ALIVIA THURMAN MD [Staff Physician] - 7 Days FERN KIMBALL MD [Staff Physician] - 7 Days Prescriptions: AtorvaSTATin [Lipitor] 40 mg PO QHS #30 tablet Aspirin [Aspirin BABY CHEW TAB] 81 mg PO QDAY #30 tab.chew ISOSORBIDE MONOnitrate [Imdur ER] 30 mg PO QDAY #30 tablet Metoprolol [Lopressor TAB] 25 mg PO BID #60 tablet lisinopriL [Zestril TAB] 5 mg PO QDAY #30 tablet
[2019-03-29] MEDS: oxyCODONE /ACETAMINOPHEN 5-325MG TAB PO PRN ×2 (11:08→17:11)
--- NOTE | 2019-03-29 11:25 | Progress Note ---
Assessment and Plan S/p C this AM which showed nonobstructive CAD, EF ~30-35%. Currently stable cardiac status. Cont present cardiac management, including ASA 81, statin, Imdur, lopressor, lisinopril. Pt may discharge home today following completion of post-cath order set. Recommend pt follow up in our office with Dr. Cantrell within 1-2 weeks ([phone]). The patient has been seen in conjunction with Dr. Cantrell who agrees with the assessment and plan of care. - Patient Problems (1) Chest pain Current Visit: Yes Status: Resolved (2) CAD (coronary artery disease) Current Visit: Yes Status: Chronic (3) Stented coronary artery Current Visit: Yes Status: Chronic (4) Cardiomyopathy Current Visit: Yes Status: Chronic (5) HTN (hypertension) Current Visit: Yes Status: Chronic (6) History of ETOH abuse Current Visit: Yes Status: Chronic (7) Noncompliance with medication regimen Current Visit: Yes Status: Chronic Subjective Date of service: 03/29/19 Principal diagnosis: cp Interval history: pt seen s/p C. no current complaints. in SR. Objective Last Vital Signs Temp 98.0 F 03/29/19 04:23 Pulse 73 03/29/19 11:16 Resp 19 03/29/19 11:16 BP 122/81 03/29/19 11:16 Pulse Ox 99 03/29/19 11:16 - Physical Examination General: No Apparent Distress HEENT: Positive: PERRL, Normocephaly, Mucus Membranes Moist Neck: Positive: neck supple, trachea midline Cardiac: Positive: Reg Rate and Rhythm, S1/S2 Lungs: Positive: Decreased Breath Sounds Neuro: Positive: Grossly Intact Abdomen: Negative: Tender Skin: Negative: Rash Musculoskeletal: No Pain Extremities: Absent: edema - Labs and Meds Coagulation 03/29/19 Range/Units 05:31 PT 12.0 L (12.2-14.9) Sec. INR 0.89 (0.87-1.13) CBC 03/29/19 Range/Units 05:31 WBC 4.7 (4.5-11.0) K/mm3 RBC 4.73 (3.65-5.03) M/mm3 Hgb 12.7 (11.8-15.2) gm/dl Hct 38.5 (35.5-45.6) % Plt Count 205 (140-440) K/mm3 Comprehensive Metabolic Panel 03/29/19 Range/Units 05:31 Sodium 139 (137-145) mmol/L Potassium 4.2 (3.6-5.0) mmol/L Chloride 101.2 (98-107) mmol/L Carbon Dioxide 26 (22-30) mmol/L BUN 11 (9-20) mg/dL Creatinine 0.8 (0.8-1.5) mg/dL Glucose 97 (75-100) mg/dL Calcium 8.4 (8.4-10.2) mg/dL - Imaging and Cardiology EKG: report reviewed, image reviewed Echo: pending - EKG Sinus rhythms and dysrhythmias: sinus rhythm
--- NOTE | 2019-03-29 11:59 | Cardiac Catherization Report ---
LEFT HEART CATHETERIZATION Being done by Dr. Arteaga on 03/29/2019. CLINICAL INFORMATION: This is a 63-year-old Afro-Indian gentleman with history of coronary artery disease, came with chest pain with negative troponins, has stress test shows fixed defects, but no ischemia, is here for left heart catheterization for documentation of coronary artery disease in view of cardiomyopathy, which is new. So, left heart catheterization performed with moderate sedation started at 8:53 a.m., finished at 9:06 a.m., which is 15 minutes of moderate sedation. Procedure was done via the right radial artery, sterile technique, local anesthesia, 6-Nigerien radial sheath inserted. PROCEDURE FINDINGS: Left system engaged with JL3.5 catheter. Following findings: Left main is large and patent, bifurcates into medium caliber LAD. The mid has a diffuse 20%. Rest of LAD is patent, mild luminal irregularities. Diagonal 1 is a small caliber vessel, has a mid 60-70% lesion of a 2.0 vessel at best. Ramus is small caliber vessel, less than 1.5 mm patent with mild irregularities. OM1 is a small caliber vessel, diffusely diseased, less than 1.5 mm distally. OM2 is a small to medium caliber, patent with mild irregularities. OM3 is a small caliber vessel, patent with mild luminal irregularities. RCA engaged with JR4 catheter, proximal is patent with 20% diffuse disease and its proximal stent is patent with 20% in-stent restenosis. Mid RCA has a 60-70% lesion, but there is diffuse disease and the RCA, PDA and PLV are small caliber vessels are patent with diffuse disease. LV gram done in ARMENIAN and MEHTA view shows moderate LV dysfunction, EF 30-35%. A 5-Nigerien catheter was taken over a guidewire. A 6-Nigerien radial sheath was discontinued. Radial band applied. No hematoma, no bleeding. SUMMARY: Coronary artery disease, left main patent, LAD mid 20%, diagonal less than 2-mm vessel as a mid 60-70%. Ramus and OM1 are less than 1.5 mm vessels, are diffusely diseased. Circ is patent with mild luminal irregularities. OM2 is small to medium caliber and patent. RCA 30% proximal stent patent with 20% in-stent restenosis, mid 60-70% diffuse disease in distal circ with PDA and PLV are small caliber vessel with diffuse disease with moderate LV dysfunction. Treat medically as the patient has a history of ETOH abuse and smoking and noncompliant with medications. Discussed this in detail with the patient. JOB# [id number] NAHID/ESTELLA
[2019-03-29 15:47] VITALS: BP 122/82
[2019-03-29] MEDS: ENOXAPARIN 40 MG/0.4 ML INJ SUB-Q SCH (22:16)
[2019-03-30] MEDS ORDERED: ASPIRIN 81 MG TAB CHEW PO SCH (10:00)
== END 2019-03-29 22:30 | disposition home or self-care (01) | DRG 287 ==
LOC: ED 11:13 → INTOOBSV 13:05 → 4A 13:05 → OBSVTOIN 03-29 08:36
PROVIDERS: ADMIT Internal Medicine; ATTEND Internal Medicine
PROC: 4A023N7 Measurement of Cardiac Sampling and Pressure, Left Heart, Percutaneous Approach (ICD-10-PCS; principal; 2019-03-29)
PROC: B2111ZZ Fluoroscopy of Multiple Coronary Arteries using Low Osmolar Contrast (ICD-10-PCS; 2019-03-29)
PROC: B2151ZZ Fluoroscopy of Left Heart using Low Osmolar Contrast (ICD-10-PCS; 2019-03-29)
DX: T82.855A Stenosis of coronary artery stent, initial encounter (principal); I42.8 Other cardiomyopathies; I25.2 Old myocardial infarction; I10 Essential (primary) hypertension; Y83.8 Other surgical procedures as the cause of abnormal reaction of the patient, or of later complication, without mention of misadventure at the time of the procedure; Y92.89 Other specified places as the place of occurrence of the external cause; Z87.891 Personal history of nicotine dependence; Z95.5 Presence of coronary angioplasty implant and graft; Z91.14 Patient's other noncompliance with medication regimen
CPT/HCPCS: 36415; 71045; 78452; 80048; 80061; 82962; 83036; 84484; 85007; 85025; 85610; 93005; 93010; 93017; 93306; 93458; G0378; A9270-GY; A9502; C1894; J1644; J1650; J2250; J2785; J3010; J7040; Q9967

== ENCOUNTER 2019-04-16 10:25 | Emergency (ER) | payer SELFPAY ==
--- NOTE | 2019-04-16 11:10 | XRay Report ---
CHEST 2 VIEWS INDICATION: SOB, cough, chills. COMPARISON: 03/27/2019 FINDINGS: Support devices: None. Heart: Within normal limits. Lungs/pleura: No acute air space or interstitial disease. No pneumothorax. Additional findings: None. IMPRESSION: No acute findings. Signer Name: Geovani Tesfaye Jr, MD Signed: 04/16/2019 11:06 AM Workstation Name: [id number]
[2019-04-16 13:34] VITALS: BP 137/105
[2019-04-16] MEDS ORDERED: dexAMETHasone 4 MG/ML VIAL IM STA (13:48)
[2019-04-16] MEDS ORDERED: LEVALBUTEROL 0.63 MG/3 ML NEBU IH ONE (13:48)
[2019-04-16] MEDS ORDERED: IPRATROPIUM 0.02% NEBU 2.5 ML IH ONE (13:48)
--- NOTE | 2019-04-16 13:48 | Emergency Department Report ---
Minor Respiratory - HPI Chief Complaint: Upper Respiratory Infection Stated Complaint: CHEST PAIN Time Seen by Provider: 04/16/19 13:19 Duration: over 2 weeks and worsening over the last 2 days Severity: moderate (headache and bodyaches 6 out of 10 and achy) Minor Respiratory: Yes Rhinorrhea (congestion with drainage), Yes Able to Tolerate Fluids, Yes Cough, No Sore Throat, No Ear Pain, No Sick Contacts, No Hemoptysis, No Chest Pain, No Shortness of Breath, No Fever (chills) ED Review of Systems ROS: Stated complaint: CHEST PAIN Other details as noted in HPI ED Past Medical Hx - Past Medical History Previous Medical History?: Yes Hx Hypertension: Yes Hx Heart Attack/AMI: Yes (1 stent) - Surgical History Past Surgical History?: Yes Hx Coronary Stent: Yes (1) Additional Surgical History: Cardiac cath - Family History Family history: hypertension - Social History Smoking Status: Former Smoker Substance Use Type: None - Medications Home Medications: Home Medications Medication Instructions Recorded Confirmed Last Taken Type Aspirin [Aspirin BABY CHEW TAB] 81 mg PO QDAY #30 tab.chew 03/29/19 Unknown Rx AtorvaSTATin [Lipitor] 40 mg PO QHS #30 tablet 03/29/19 Unknown Rx ISOSORBIDE MONOnitrate [Imdur ER] 30 mg PO QDAY #30 tablet 03/29/19 Unknown Rx Lisinopril [Zestril TAB] 5 mg PO QDAY #30 tablet 03/29/19 Unknown Rx Metoprolol [Lopressor TAB] 25 mg PO BID #60 tablet 03/29/19 Unknown Rx ALBUTEROL Inhaler (OR & NICU) 2 puff IH Q4HR PRN #1 inhalation 04/16/19 Unknown Rx [ProAir HFA Inhaler] Amoxicillin/K Clav Tab [Augmentin 1 tab PO Q12HR 10 Days #20 tab 04/16/19 Unknown Rx 875 mg] Cetirizine HCl [ZyrTEC] 10 mg PO QAM 14 Days #14 capsule 04/16/19 Unknown Rx Fluticasone [Flonase] 1 spray NS QDAY 14 Days #1 bottle 04/16/19 Unknown Rx Prednisone [predniSONE 10 mg 10 mg PO .TAPER 6 Days #1 tab.ds.pk 04/16/19 Unknown Rx (6-Day Pack, 21 Tabs)] guaiFENesin/CODEINE [Robitussin AC] 10 ml PO QHS PRN #70 oral.liqd 04/16/19 Unknown Rx Minor Respiratory Exam - Exam General: Vital signs noted. No distress. Alert and acting appropriately. This is a 63-year-old male here reported that he is having an cough and congestion and he is coughing a lot especially at night and it causes then and perhaps some tightness in his midsternal area. He has a history of cardiac stent 1. Reports that he quit smoking in December 2018. Pain is only with cough and and 2/10 with body ache and headache at 6/10. Denies any fever but reports chills and no medication taken prior to coming to the emergency room. He denies any shortness of breath.. HEENT: Yes Moist Mucous Membranes (uvula midline and oral airways patent), Yes Rhinorrhea (physical congestion with erythema of mucosa), Yes Frontal Tenderness, Yes Maxillary Tenderness, No Pharyngeal Erythema, No Conjuctival Injection Ear: Neither TM Bulge, Neither TM Erythema, Neither EAC Pain, Neither EAC Discharge Lungs: Yes Good Air Exchange, Yes Wheezes (wheezing in the upper lung swann), Yes Ronchi (rhonchi cleared with cough and), Yes Cough (Congested cough), Yes Other Abnormal Lung Sounds (minimal decreased air entry to the lung swann), No Stridor, No Labored Respirations, No Retractions, No Use of Accessory Muscles Heart: Yes Regular (S1 and S2), No Murmur Abdomen: Yes Normal Bowel Sounds ([place] bowel sounds in all quadrants), No Tenderness (nontender the palpation in all quadrants), No Peritoneal Signs Skin: No Rash, No Edema Neurologic: Alert and oriented, no deficits. Musculoskeletal: Unremarkable. No cce. + 2 pulses in all extremities, no neurovascular compromise ED Course Vital Signs 04/16/19 04/16/19 10:39 13:33 Temperature 98.2 F 98.3 F Pulse Rate 88 98 H Respiratory 18 18 Rate Blood Pressure 137/105 Blood Pressure 132/91 [Right] O2 Sat by Pulse 93 94 Oximetry - Reevaluation(s) Reevaluation #1: 04/16/19 16:03 Patient has Xopenex 1.26 mg and Atrovent 1 mg nebulizer treatment in emergency room and lung sounds are clear he said he feels much better but still with coughing. He had Decadron 10 mg IM ED Medical Decision Making - Radiology Data Radiology results: report reviewed Chest x-ray dictated by radiologist report reviewed by myself. No acute findings except I noted some hyperinflation with minimal blunting to diaphragm area just than mild COPD. Findings [facility] [address] [place] [address] XRay Report Signed Patient: ROBIN CARLIN MR#: [id number] : 1955 Acct:[id number] Age/Sex: 63 / M ADM Date: 04/16/19 Loc: ED Attending Dr: Ordering Physician: ADRIANO KEEN MD Date of Service: 04/16/19 Procedure(s): XR chest routine 2V Accession Number(s): [id number] cc: ED MD OSMANI Fluoro Time In Minutes: CHEST 2 VIEWS INDICATION: SOB, cough, chills. COMPARISON: 03/27/2019 FINDINGS: Support devices: None. Heart: Within normal limits. Lungs/pleura: No acute air space or interstitial disease. No pneumothorax. Additional findings: None. IMPRESSION: No acute findings. Signer Name: Geovani Tesfaye Jr, MD Signed: 04/16/2019 11:06 AM Workstation Name: [id number] Transcribed By: TTR Dictated By: GEOVANI TESFAYE JR, MD Electronically Authenticated By: GEOVANI TESFAYE JR, MD Signed Date/Time: 04/16/191105 DD/ 05 TD/TT: - Medical Decision Making This is a 63-year-old male here report that he has been having cold symptoms for 2 weeks is getting worse over the last 2 days. Patient evaluated and found to have acute bacterial rhinosinusitis with cough. Patient and x-ray shows no acute finding but up and evaluated and x-rayed shows mild COPD and patient was a long-term smoker who reportedly quit in December 2018. His pulse ox was 93% in room air and is fluctuating from 96 to 100% after nebulizer treatment in emergency room . Patient with acute bacterial sinusitis and bronchitis. I discussed x-ray report along with treatment plan, medication and need for patient to follow up with pulmonary for further evaluation. I discussed the patient that he needs to continue to stop smoking and take medication as prescribed and he voiced understanding. Patient discharged home on Zyrtec, Flonase, prednisone Dosepak, albuterol and Augmentin. - Differential Diagnosis PNA, bronchitis, URI or cough and congestion, sinusitis Critical care attestation.: If time is entered above; I have spent that time in minutes in the direct care of this critically ill patient, excluding procedure time. ED Disposition Clinical Impression: Cough in adult Sinusitis, acute Qualifiers: Sinusitis location: unspecified location Recurrence: recurrent Qualified Code(s): J01.91 - Acute recurrent sinusitis, unspecified Acute bronchitis Qualifiers: Bronchitis organism: unspecified organism Qualified Code(s): J20.9 - Acute bronchitis, unspecified Disposition: DC- TO HOME OR SELFCARE Is pt being admited?: No Does the pt Need Aspirin: No Condition: Stable Instructions: Acute Bronchitis (ED), Acute Bacterial Rhinosinusitis (ED) Additional Instructions: Follow-up with manager care management and primary care as discussed. Take medication as prescribed Increase her fluid intake and continue smoking cessation If condition worsens, return to the emergency room PERRY Do not drive or operate heavy machinery while taking guaifenesin with codeine as this medication causes drowsiness [facility] [Primary Care Provider] - 04/18/19 HAYDE IRWIN MD [Staff Physician] - 3-5 Days Forms: Work/School Release Form(ED)
== END 2019-04-16 16:29 | disposition home or self-care (01) ==
LOC: ED 10:25
DX: J01.90 Acute sinusitis, unspecified (principal); J20.9 Acute bronchitis, unspecified; I10 Essential (primary) hypertension; I25.2 Old myocardial infarction; Z95.5 Presence of coronary angioplasty implant and graft; Z87.891 Personal history of nicotine dependence; Z79.899 Other long term (current) drug therapy
CPT/HCPCS: 71046; 94640; 96372; 99283; J1100; 94644